=== PATIENT | male | born 1970 | race Caucasian/White ===

== ENCOUNTER 2023-04-01 05:25 | Emergency (ER) | payer OTHER ==
[~2023-04-01] VITALS: Ht 172.7 cm; Wt 82.0 kg
[2023-04-01 05:32] VITALS: TEMP 98.3; O2SAT 99
[2023-04-01] MEDS ORDERED: KETOROLAC 30MG/ML VIAL IV ONE (09:30)
[2023-04-01] MEDS ORDERED: PIPERACILLIN/TAZ 3.375G PREMIX 50 ML IV NR (09:30)
[2023-04-01] MEDS ORDERED: PIPERACILLIN/TAZOBACTAM 3.375GM/50ML PREMIX IV ONE (09:30)
[2023-04-01] MEDS ORDERED: SODIUM CHLORIDE 0.9% 500 ML IV ONE (09:30)
[2023-04-01 10:59] VITALS: BP 134/78; PULSE 62; RESP 18
[2023-04-01] MEDS ORDERED: TOPUD MT (13:14)
[2023-04-01] MEDS ORDERED: IBUP-1525 MT (13:14)
[2023-04-01] MEDS ORDERED: DICL500C MT (13:14)
== END 2023-04-01 13:25 | disposition home or self-care (01) ==
LOC: ER 05:25
DX: M79.644 Pain in right finger(s) (principal)
CPT/HCPCS: 99284; 96365; 96361; 96375; 73130; J1885; J2543; J7040